=== PATIENT | female | born 1960 | race Hispanic/Latino ===

== ENCOUNTER 2017-11-10 06:27 | Day surgery (SDC) | payer BC, OTHER ==
[~2017-11-10] VITALS: Ht 157.5 cm; Wt 61.1 kg
[~2017-11-10 06:27] MED LIST: CA C1TAB99 PO; CHOL100040 PO; FISH1CAP49 PO; NAPR-1023 PO; PANT40TA25 PO; PREG75 PO; TRAM-355 PO
[2017-11-10] MEDS ORDERED: SODIUM CHLORIDE 0.9% 1000ML 1,000 ML IV ONE (06:53)
[2017-11-10 06:59] VITALS: BP 139/75
[2017-11-10] MEDS ORDERED: PROPOFOL 10 MG/ML 20ML VIAL IV ONE ×2 (07:51)
[2017-11-10 08:11] VITALS: BP 85/47
== END 2017-11-10 09:00 ==
LOC: DAH 06:27
PROVIDERS: ATTEND Internal Medicine Gastroenterology
DX: R19.5 Other fecal abnormalities (principal); Z88.0 Allergy status to penicillin
CPT/HCPCS: 45378; A4606; J2704 ×2; J7030